=== PATIENT | male | born 1935 | race Caucasian/White ===

== ENCOUNTER 2021-04-18 14:40 | Inpatient (IN) | payer OTHER ==
[~2021-04-18 14:40] MED LIST: Iopamidol 370 76% 100 ML VIAL ONE
[2021-04-18 15:54] LABS: #Eosinphils 0.2 thou/uL (0.0-0.7); #Lymphocytes 0.7 thou/uL (1.20-3.40); #Monocytes 0.4 thou/uL (0.11-0.59); #Neutrophils 10.6 thou/uL (1.40-6.50); %Basophils 0.3 % (0.0-1.0); %Eosinophils 2.1 % (0.0-10.0); %Lymphocytes 5.9 % (21.0-51.0); %Monocytes 3.4 % (0.0-10.0); %Neutrophils 88.4 % (42.0-75.0); Hemoglobin 13.8 g/dL (14.0-18.0); Mean Corpuscular HGB CONC 31.7 g/dL (32.0-36.0); Mean Corpuscular Hemoglobin 32.5 pg (27.0-31.0); Mean Platelet Volume 7.3 fL (7.4-10.4); Platelet Count 217 thou/uL (130-400); RBC Distribution Width 14.6 % (11.5-14.5); Red Blood Cell (RBC) Count 4.26 mill/uL (4.70-6.10)
[2021-04-18 16:20] LABS: ALT (SGPT) 108 U/L (8-55); AST (SGOT) 55 U/L (5-34); Albumin 3.3 g/dL (3.4-4.8); Alkaline Phosphatase 83 U/L (40-110); Anion Gap 16 mmol/L (10-20); BUN (Urea Nitrogen) 28 mg/dL (8.4-25.7); Bilirubin, Total 0.6 mg/dL (0.2-1.2); Calc. Creatinine Clearance 0 mL/min (70-130); Calcium 9.2 mg/dL (7.8-10.44); Carbon Dioxide 25 mmol/L (23-31); Chloride 104 mmol/L (98-107); Globulin 3.9 g/dL (2.4-3.5); Glucose 128 mg/dL (83-110); Potassium 4.6 mmol/L (3.5-5.1); Protein, Total 7.2 g/dL (5.8-8.1); Sodium 140 mmol/L (136-145)
[2021-04-18] MEDS ORDERED: cefTRIAXone\\ROCEPHIN 2 GM VIAL ONE (17:16)
[2021-04-18] MEDS ORDERED: predniSONE 20 MG TAB ONE (18:05)
[2021-04-18] MEDS ORDERED: PROVENTIL INHALER 6.7 G (200 INHALATIONS) ONE (18:05)
[2021-04-18] MEDS ORDERED: Albuterol 200 PUFF (6.7GM INHALER) ONE (18:10)
[2021-04-18] MEDS ORDERED: Magnesium 2 GM/50 ML BAG (IN WATER) ONE (18:13)
[2021-04-18 19:42] LABS: SARS-CoV-2 NAA Rapid Test Not Detected (NotDetected)
[2021-04-18] MEDS ORDERED: Ondansetron ODT 4 MG TAB PO PRN (21:27)
[2021-04-18] MEDS ORDERED: Acetaminophen 650 MG Suppository PR PRN (21:27)
[2021-04-18] MEDS ORDERED: Acetaminophen 325 MG TAB PO PRN (21:27)
[2021-04-18] MEDS ORDERED: Ondansetron PF 4 MG/2 ML Vial IVP PRN (21:27)
[2021-04-18 21:43] LABS: CKMB 0.8 ng/mL (0-6.6)
[2021-04-18] MEDS ORDERED: Furosemide 40 MG/4 ML VIAL SLOW IVP SCH (22:00)
[2021-04-18] MEDS ORDERED: Atorvastatin Calcium 40 MG TAB PO SCH (22:00)
[2021-04-18] MEDS ORDERED: Aspirin 81 mg Enteric Coated Tablet PO SCH (22:00)
[2021-04-18] MEDS: Cefepime 2 GM in Sodium Chloride 0.9% 100 ML IVPB SCH (22:39)
[2021-04-19 03:05] LABS: Troponin I 0.059 ng/mL (< 0.028)
[2021-04-19 06:40] LABS: Hemoglobin 11.7 g/dL (14.0-18.0); Mean Corpuscular HGB CONC 31.5 g/dL (32.0-36.0); Mean Corpuscular Hemoglobin 31.7 pg (27.0-31.0); Mean Platelet Volume 7.8 fL (7.4-10.4); Platelet Count 164 thou/uL (130-400); RBC Distribution Width 14.7 % (11.5-14.5); White Blood Cell (WBC) Count 12.8 thou/uL (4.8-10.8)
[2021-04-19 06:45] LABS: Anion Gap 3 mmol/L (10-20); BUN (Urea Nitrogen) 28 mg/dL (8.4-25.7); Calc. Creatinine Clearance 53 mL/min (70-130); Calcium 8.4 mg/dL (7.8-10.44); Carbon Dioxide 35 mmol/L (23-31); Chloride 106 mmol/L (98-107); Glucose 160 mg/dL (83-110); Potassium 4.1 mmol/L (3.5-5.1); Sodium 140 mmol/L (136-145)
[2021-04-19 07:27] LABS: Band 3 % (5-11); Lymphocytes 7 % (21-51); MDiff Complete? YES; Monocytes 2 % (0-10); Neutrophil 88 % (42-75); Platelet Morphology Comment Appears Adequate; RBC Morphology Normal
[2021-04-19] MEDS: Empagliflozin 25 MG TAB PO SCH (08:43)
[2021-04-19] MEDS: Enoxaparin Sodium 40 MG/0.4 ML SYRINGE SC SCH (08:44)
[2021-04-19] MEDS: Ezetimibe 10 MG TAB PO SCH (08:45)
[2021-04-19] MEDS: methylPREDNISolone Sod Succ 40 MG VIAL IVP SCH ×2 (08:45→20:20)
[2021-04-19] MEDS ORDERED: Furosemide 40 MG/4 ML VIAL SLOW IVP SCH (09:00)
[2021-04-19] MEDS ORDERED: Cefepime 2 GM in Sodium Chloride 0.9% 100 ML IVPB SCH (11:00)
[2021-04-19] MEDS: Cefepime 2 GM in Sodium Chloride 0.9% 100 ML IVPB SCH ×2 (11:30→23:10)
[2021-04-19 14:05] VITALS: BMI 25.0
[2021-04-19] MEDS: Azithromycin 500 MG in Sodium Chloride 0.9% 250 ML 250 ML IVPB SCH (17:45)
[2021-04-19] MEDS: guaiFENesin ER 600 MG TAB PO SCH (20:19)
[2021-04-19] MEDS: Aspirin 81 mg Enteric Coated Tablet PO SCH (20:20)
[2021-04-19] MEDS: Atorvastatin Calcium 40 MG TAB PO SCH (20:21)
[2021-04-19] MEDS ORDERED: Non-Formulary Item 1 EACH (Atorvastatin Calcium [Atorvastatin Calcium] 80 MG Tablet) PO SCH (21:00)
[2021-04-19] MEDS ORDERED: methylPREDNISolone Sod Succ 40 MG VIAL IVP SCH (21:00)
[2021-04-19] MEDS ORDERED: Aspirin 81 mg Enteric Coated Tablet PO SCH (21:00)
[2021-04-20 06:40] LABS: Anion Gap 11 mmol/L (10-20); BUN (Urea Nitrogen) 42 mg/dL (8.4-25.7); Calc. Creatinine Clearance 44 mL/min (70-130); Calcium 8.6 mg/dL (7.8-10.44); Carbon Dioxide 28 mmol/L (23-31); Chloride 106 mmol/L (98-107); Glucose 160 mg/dL (83-110); Magnesium 2.6 mg/dL (1.6-2.6); Potassium 4.1 mmol/L (3.5-5.1); Sodium 141 mmol/L (136-145)
[2021-04-20 07:00] LABS: Band 1 % (5-11); Hemoglobin 11.4 g/dL (14.0-18.0); Lymphocytes 5 % (21-51); MDiff Complete? YES; Mean Corpuscular HGB CONC 31.8 g/dL (32.0-36.0); Mean Corpuscular Hemoglobin 32.2 pg (27.0-31.0); Mean Platelet Volume 8.1 fL (7.4-10.4); Monocytes 1 % (0-10); Neutrophil 93 % (42-75); Platelet Count 172 thou/uL (130-400); RBC Distribution Width 14.8 % (11.5-14.5); Red Blood Cell (RBC) Count 3.55 mill/uL (4.70-6.10); White Blood Cell (WBC) Count 22.8 thou/uL (4.8-10.8)
[2021-04-20] MEDS: predniSONE 20 MG TAB PO SCH (08:20)
[2021-04-20] MEDS ORDERED: Furosemide 20 MG TAB PO SCH (09:00)
[2021-04-20] MEDS: Ezetimibe 10 MG TAB PO SCH (09:01)
[2021-04-20] MEDS: Enoxaparin Sodium 40 MG/0.4 ML SYRINGE SC SCH (09:14)
[2021-04-20] MEDS: Empagliflozin 25 MG TAB PO SCH (09:21)
[2021-04-20] MEDS: guaiFENesin ER 600 MG TAB PO SCH ×2 (09:21→20:32)
[2021-04-20] MEDS ORDERED: methylPREDNISolone Sod Succ 40 MG VIAL IVP SCH (09:30)
[2021-04-20] MEDS: Cefepime 2 GM in Sodium Chloride 0.9% 100 ML IVPB SCH ×2 (11:06→22:57)
[2021-04-20] MEDS: Azithromycin 500 MG in Sodium Chloride 0.9% 250 ML 250 ML IVPB SCH (16:47)
[2021-04-20] MEDS: Atorvastatin Calcium 40 MG TAB PO SCH (20:32)
[2021-04-20] MEDS: Aspirin 81 mg Enteric Coated Tablet PO SCH (20:32)
[2021-04-21] MEDS: predniSONE 20 MG TAB PO SCH (08:39)
[2021-04-21] MEDS: guaiFENesin ER 600 MG TAB PO SCH ×2 (08:40→20:43)
[2021-04-21] MEDS: Ezetimibe 10 MG TAB PO SCH (08:40)
[2021-04-21] MEDS: Empagliflozin 25 MG TAB PO SCH (08:40)
[2021-04-21 08:41] LABS: #Lymphocytes 1.3 thou/uL (1.20-3.40); #Monocytes 1.2 thou/uL (0.11-0.59); #Neutrophils 22.9 thou/uL (1.40-6.50); %Basophils 0.1 % (0.0-1.0); %Eosinophils 0.1 % (0.0-10.0); %Lymphocytes 4.9 % (21.0-51.0); %Monocytes 4.9 % (0.0-10.0); %Neutrophils 90.1 % (42.0-75.0); Hemoglobin 11.4 g/dL (14.0-18.0); Mean Corpuscular HGB CONC 31.3 g/dL (32.0-36.0); Mean Corpuscular Hemoglobin 32.1 pg (27.0-31.0); Mean Platelet Volume 7.8 fL (7.4-10.4); Platelet Count 200 thou/uL (130-400); RBC Distribution Width 14.9 % (11.5-14.5); Red Blood Cell (RBC) Count 3.54 mill/uL (4.70-6.10); White Blood Cell (WBC) Count 25.4 thou/uL (4.8-10.8)
[2021-04-21] MEDS: Enoxaparin Sodium 40 MG/0.4 ML SYRINGE SC SCH (08:41)
[2021-04-21 08:54] LABS: Anion Gap 12 mmol/L (10-20); BUN (Urea Nitrogen) 54 mg/dL (8.4-25.7); Calc. Creatinine Clearance 43 mL/min (70-130); Calcium 8.7 mg/dL (7.8-10.44); Carbon Dioxide 25 mmol/L (23-31); Chloride 108 mmol/L (98-107); Glucose 101 mg/dL (83-110); Potassium 4.1 mmol/L (3.5-5.1); Sodium 141 mmol/L (136-145)
[2021-04-21] MEDS ORDERED: Doxycycline 100 MG CAP PO SCH ×3 (09:37→21:00)
[2021-04-21] MEDS: Atorvastatin Calcium 40 MG TAB PO SCH (20:42)
[2021-04-21] MEDS: Aspirin 81 mg Enteric Coated Tablet PO SCH (20:42)
[2021-04-21] MEDS: Doxycycline 100 MG CAP PO SCH (20:43)
[2021-04-22] MEDS ORDERED: Guaifenesin DM 100-10/5 ML UDCUP PO PRN (00:34)
[2021-04-22 06:02] LABS: #Basophils 0.1 thou/uL (0.0-0.2); #Lymphocytes 0.9 thou/uL (1.20-3.40); #Monocytes 1.2 thou/uL (0.11-0.59); #Neutrophils 14.6 thou/uL (1.40-6.50); %Basophils 0.5 % (0.0-1.0); %Lymphocytes 5.4 % (21.0-51.0); %Monocytes 7.3 % (0.0-10.0); %Neutrophils 86.7 % (42.0-75.0); Hemoglobin 11.2 g/dL (14.0-18.0); Mean Corpuscular Hemoglobin 32.5 pg (27.0-31.0); Mean Platelet Volume 8.1 fL (7.4-10.4); Platelet Count 205 thou/uL (130-400); RBC Distribution Width 14.8 % (11.5-14.5); Red Blood Cell (RBC) Count 3.44 mill/uL (4.70-6.10); White Blood Cell (WBC) Count 16.8 thou/uL (4.8-10.8)
[2021-04-22 06:13] LABS: Anion Gap 10 mmol/L (10-20); BUN (Urea Nitrogen) 56 mg/dL (8.4-25.7); Calc. Creatinine Clearance 44 mL/min (70-130); Calcium 8.7 mg/dL (7.8-10.44); Carbon Dioxide 26 mmol/L (23-31); Chloride 110 mmol/L (98-107); Glucose 104 mg/dL (83-110); Potassium 4.1 mmol/L (3.5-5.1); Sodium 142 mmol/L (136-145)
[2021-04-22] MEDS: predniSONE 20 MG TAB PO SCH (08:57)
[2021-04-22] MEDS: Ezetimibe 10 MG TAB PO SCH (08:57)
[2021-04-22] MEDS: Empagliflozin 25 MG TAB PO SCH (08:58)
[2021-04-22] MEDS: Doxycycline 100 MG CAP PO SCH ×2 (08:58→20:57)
[2021-04-22] MEDS ORDERED: Furosemide 40 MG/4 ML VIAL SLOW IVP SCH (09:00)
[2021-04-22] MEDS: Enoxaparin Sodium 40 MG/0.4 ML SYRINGE SC SCH (09:03)
[2021-04-22] MEDS: Sodium Chloride 3% (15 ML) NEB NEB SCH ×4 (10:37→23:20)
[2021-04-22] MEDS: Aspirin 81 mg Enteric Coated Tablet PO SCH (20:57)
[2021-04-22] MEDS: Atorvastatin Calcium 40 MG TAB PO SCH (20:58)
[2021-04-23] MEDS: Sodium Chloride 3% (15 ML) NEB NEB SCH ×2 (04:02→06:27)
[2021-04-23 05:27] LABS: #Lymphocytes 1.4 thou/uL (1.20-3.40); #Monocytes 1.3 thou/uL (0.11-0.59); #Neutrophils 14.5 thou/uL (1.40-6.50); %Basophils 0.1 % (0.0-1.0); %Eosinophils 0.1 % (0.0-10.0); %Lymphocytes 8.2 % (21.0-51.0); %Monocytes 7.6 % (0.0-10.0); Mean Corpuscular HGB CONC 30.8 g/dL (32.0-36.0); Mean Corpuscular Hemoglobin 31.4 pg (27.0-31.0); Platelet Count 241 thou/uL (130-400); RBC Distribution Width 15.1 % (11.5-14.5); Red Blood Cell (RBC) Count 3.84 mill/uL (4.70-6.10); White Blood Cell (WBC) Count 17.2 thou/uL (4.8-10.8)
[2021-04-23 05:52] LABS: Anion Gap 11 mmol/L (10-20); BUN (Urea Nitrogen) 53 mg/dL (8.4-25.7); Calc. Creatinine Clearance 48 mL/min (70-130); Calcium 9.3 mg/dL (7.8-10.44); Carbon Dioxide 26 mmol/L (23-31); Chloride 107 mmol/L (98-107); Glucose 102 mg/dL (83-110); Potassium 4.1 mmol/L (3.5-5.1); Sodium 140 mmol/L (136-145)
[2021-04-23] MEDS: Ezetimibe 10 MG TAB PO SCH (08:39)
[2021-04-23] MEDS: Doxycycline 100 MG CAP PO SCH (08:40)
[2021-04-23] MEDS: Empagliflozin 25 MG TAB PO SCH (08:40)
[2021-04-23] MEDS: predniSONE 20 MG TAB PO SCH (08:40)
[2021-04-23] MEDS: Enoxaparin Sodium 40 MG/0.4 ML SYRINGE SC SCH (08:41)
[2021-04-23 14:41] VITALS: BP 138/79; TEMP 98.1
[2021-04-23] MEDS ORDERED: Sodium Chloride 3% (15 ML) NEB NEB SCH (18:30)
== END 2021-04-23 15:02 | disposition hospice, home (50) | DRG 871 ==
LOC: ERS 14:40 → T4-B 18:55
PROVIDERS: ADMIT Hospitalist; ATTEND Internal Medicine
DX: A41.9 Sepsis, unspecified organism (principal); J18.9 Pneumonia, unspecified organism; J96.21 Acute and chronic respiratory failure with hypoxia; I50.23 Acute on chronic systolic (congestive) heart failure; I42.9 Cardiomyopathy, unspecified; J84.112 Idiopathic pulmonary fibrosis; I25.10 Atherosclerotic heart disease of native coronary artery without angina pectoris; R65.20 Severe sepsis without septic shock; E78.5 Hyperlipidemia, unspecified; E78.00 Pure hypercholesterolemia, unspecified; M06.9 Rheumatoid arthritis, unspecified; J84.10 Pulmonary fibrosis, unspecified; I11.0 Hypertensive heart disease with heart failure; Z20.822 Contact with and (suspected) exposure to COVID-19; J47.9 Bronchiectasis, uncomplicated; K80.20 Calculus of gallbladder without cholecystitis without obstruction; Z79.51 Long term (current) use of inhaled steroids; Z79.82 Long term (current) use of aspirin; Z95.1 Presence of aortocoronary bypass graft; Z95.0 Presence of cardiac pacemaker; Z87.891 Personal history of nicotine dependence; Z99.81 Dependence on supplemental oxygen; Z79.899 Other long term (current) drug therapy
CPT/HCPCS: 0240U; 36415; 71275; 80048; 80053; 82553; 83605; 83735; 83880; 84484; 85025; 87040; 93005; 93306; 94640; 96365; 96366; 96367; J0456; J0692; J0696; J1650; J1940; J2920; J3475; J3490; J7050; J7512; J7620; Q9967